=== PATIENT | male | born 1990 | race Caucasian/White ===

== ENCOUNTER 2020-02-04 17:58 | Emergency (ER) | payer MEDICAID, SELFPAY ==
[~2020-02-04] VITALS: Ht 165.1 cm; Wt 86.2 kg
[2020-02-04 18:10] VITALS: BP_SYST 139
[2020-02-04] MEDS ORDERED: NACL 0.9% 1,000 ML IV ONE (18:25)
[2020-02-04] MEDS ORDERED: cefTRIAXone 1 GM IVPB PREMIX 50 ML IV ONE (18:45)
[2020-02-04 19:16] LABS: BASOPHILS % (AUTO) 0.4 % (0.0-2.0); EOSINOPHILS % (AUTO) 0.1 % (0.0-4.0); HEMATOCRIT 46.7 % (36-54); HEMOGLOBIN 15.9 g/dL (14.0-18.0); LYMPHOCYTES # (AUTO) 1.3 K/uL (1.0-5.5); LYMPHOCYTES % (AUTO) 17.2 % (20.5-51.5); MEAN CORPUSCULAR HEMOGLOBIN 33 pg (27-31); MEAN CORPUSCULAR HGB CONC 34 % (32-36); MEAN CORPUSCULAR VOLUME 95 fL (79.0-98.0); MONOCYTES # (AUTO) 0.5 K/uL (0.0-1.0); MONOCYTES % (AUTO) 6.5 % (1.7-9.3); NEUTROPHILS # (AUTO) 5.9 K/uL (1.8-7.7); NEUTROPHILS % (AUTO) 75.8 % (40.0-70.0); PLATELET COUNT (AUTO) 221 K/uL (130-430); RED CELL DISTRIBUTION WIDTH 12.7 % (9.0-15.0); WHITE BLOOD COUNT (AUTO) 7.8 K/uL (4.8-10.8)
[2020-02-04 19:31] LABS: CALCIUM 8.4 mg/dL (8.4-11.0); CREATININE 0.92 mg/dL (0.55-1.30); POTASSIUM 3.9 mmol/L (3.5-5.1)
[2020-02-04 19:33] LABS: INR 0.9 (0.80-1.20); PROTHROMBIN TIME 9.5 SECS (9.5-12.5)
[2020-02-04 19:39] LABS: ALBUMIN 3.7 g/dL (3.4-4.8); TOTAL BILIRUBIN 0.3 mg/dL (0.0-1.0)
[2020-02-04 20:30] LABS: BILIRUBIN,URINE 1+ (NEGATIVE); BLOOD, URINE NEGATIVE (NEGATIVE); CLARITY/URINE CLEAR (CLEAR); COLOR,URINE YELLOW (YELLOW); GLUCOSE,URINE NEGATIVE (NEGATIVE); KETONES,URINE 1+ (NEGATIVE); LEUKOCYTE ESTERASE ,URINE NEGATIVE (NEGATIVE); NITRITE, URINE NEGATIVE (NEGATIVE); PROTEIN URINE 2+ (NEGATIVE)
[2020-02-04 21:29] LABS: BACTERIA,URINE FEW /HPF (None Seen); MUCUS,URINE 2+ /LPF (None Seen); RBC,URINE NONE SEEN /HPF (0-3); WBC,URINE 0-3 /HPF (0-3)
[2020-02-04] MEDS ORDERED: IBUPROFEN 800 MG TABLET PO ONE (21:45)
[2020-02-04 21:51] VITALS: BP_SYST 122
== END 2020-02-04 21:52 | disposition home or self-care (01) ==
LOC: SED 17:58
DX: R05 Cough (principal); R50.9 Fever, unspecified; Z20.828 Contact with and (suspected) exposure to other viral communicable diseases
CPT/HCPCS: 36415; 71045; 80053; 81000; 82150; 82550; 83605; 83690; 83880; 85025; 85610; 85730; 87040; 93005; 96365; 99285; J0696; J7030; U0003; C9803-CS

== ENCOUNTER 2020-08-05 10:17 | Emergency (ER) | payer BC, SELFPAY ==
[~2020-08-05] VITALS: Ht 160 cm; Wt 72.6 kg
[2020-08-05 10:17] VITALS: BP_SYST 115
--- NOTE | 2020-08-05 10:17 | NUR ---
BROUGHT TO OUTDOOR ER TENT AND TRIAGED. WILL ASSUME CARE.
--- NOTE | 2020-08-05 10:45 | NUR ---
DR PIZANO TO [facility] FOR EVALUATION
--- NOTE | 2020-08-05 11:48 | NUR ---
Patient given written and verbal discharge instructions and verbalizes understanding. ER MD discussed with patient the results and treatment provided. Patient in stable condition. ID arm band removed. Rx of NONE given. Patient educated on pain management and to follow up with PMD. Pain Scale 0/10. Opportunity for questions provided and answered. Medication side effect fact sheet provided.
== END 2020-08-05 11:48 | disposition home or self-care (01) ==
LOC: SED 10:17
DX: R50.9 Fever, unspecified (principal); M79.18 Myalgia, other site; R63.0 Anorexia; Z20.828 Contact with and (suspected) exposure to other viral communicable diseases
CPT/HCPCS: 99283; U0003

== ENCOUNTER 2021-11-15 21:34 | Emergency (ER) | payer BC, SELFPAY ==
[~2021-11-15] VITALS: Ht 165.1 cm; Wt 86.2 kg
[2021-11-15 21:51] VITALS: BP_SYST 149
--- NOTE | 2021-11-15 21:57 | NUR ---
Patient triaged and placed in waiting room. VSS and patient appears in no acute distress at this time. Awaiting available bed, and MD notified of need for MSE.
--- NOTE | 2021-11-15 22:05 | NUR ---
Patient to ER bed 7 for evaluation.
--- NOTE | 2021-11-15 22:06 | NUR ---
ER at bedside examining patient.
[2021-11-15 22:11] VITALS: BP_SYST 143
--- NOTE | 2021-11-15 22:11 | NUR ---
Patient given written and verbal discharge instructions given by Dr Gonzalez and verbalizes understanding. ER MD discussed with patient the care provided. Patient in stable condition. ID arm band removed. No Rx given. Patient educated on pain management and to follow up with PMD. Opportunity for questions provided and answered by Dr Gonzalez.
== END 2021-11-15 22:11 | disposition home or self-care (01) ==
LOC: SED 21:34
DX: M79.622 Pain in left upper arm (principal)
CPT/HCPCS: 99281

== ENCOUNTER 2022-03-31 09:39 | Emergency (ER) | payer BC ==
[~2022-03-31] VITALS: Ht 165.1 cm; Wt 70.3 kg
[2022-03-31 10:05] VITALS: BP_SYST 135
--- NOTE | 2022-03-31 10:09 | NUR ---
BIBS WITH SON WITH C/C OF WAKING UP THIS AM WITH PRODUCTIVE COUGH AFTER BEING EXPOSED THIS WEEKEND TO COVID. AND [employer] WHO ARE BOTH POSITIVE. NAD NOTED. DENIES ANY SOB. REPORTS HELM 02/23 PAIN. CONDITION STABLE AT THIS TIME. PT PLACED IN TENT. WILL NOTIFY DR. LEYVA.
[2022-03-31 10:39] VITALS: BP_SYST 129
--- NOTE | 2022-03-31 11:20 | NUR ---
CLARITZA COLLECTED AND SENT TO LAB
--- NOTE | 2022-03-31 12:30 | NUR ---
Patient given written and verbal discharge instructions and verbalizes understanding. ER MD discussed with patient the results and treatment provided. Patient in stable condition. ID arm band removed. Rx of JOSE WASHBURN given. Patient educated on pain management and to follow up with PMD. Pain Scale 0. Opportunity for questions provided and answered. Medication side effect fact sheet provided.
[2022-03-31] MEDS ORDERED: GUAI-789 PO (12:42)
[2022-03-31] MEDS ORDERED: PSEU30TA36 PO (12:42)
== END 2022-03-31 12:30 | disposition home or self-care (01) ==
LOC: SED 09:39
DX: J06.9 Acute upper respiratory infection, unspecified (principal); I10 Essential (primary) hypertension; R05.9 Cough, unspecified; R50.9 Fever, unspecified; Z79.899 Other long term (current) drug therapy; Z20.822 Contact with and (suspected) exposure to COVID-19
CPT/HCPCS: 36415; 71045; 99284

== ENCOUNTER 2023-06-22 08:22 | Emergency (ER) | payer BC ==
[~2023-06-22] VITALS: Ht 165.1 cm; Wt 93.0 kg
[~2023-06-22 08:22] MED LIST: GUAI-789 PO; PSEU30TA36 PO
[2023-06-22 08:25] VITALS: BP_SYST 126; RESP 18; TEMP 97.7; O2SAT 100
[2023-06-22 09:12] LABS: INFLUENZA TYPE B NEGATIVE (NEGATIVE)
[2023-06-22] MEDS ORDERED: OSEL75CA PO (09:18)
[2023-06-22 09:26] VITALS: BP_SYST 141; RESP 22; TEMP 97.8; O2SAT 96
[2023-06-22 11:45] LABS: INFLUENZA TYPE A POSITIVE (NEGATIVE)
== END 2023-06-22 09:26 | disposition home or self-care (01) ==
LOC: SED 08:22
DX: J10.1 Influenza due to other identified influenza virus with other respiratory manifestations (principal); R05.9 Cough, unspecified; R06.02 Shortness of breath; R50.9 Fever, unspecified; Z79.899 Other long term (current) drug therapy
CPT/HCPCS: 36415; 99283